=== PATIENT | male | born 1995 | race Caucasian/White ===

== ENCOUNTER → 2023-05-06 10:26 | Outpatient (CLI) | payer OTHER, SELFPAY ==
--- NOTE | 2023-05-06 | DI.MRI.S_ITS ---
PROCEDURE: MR KNEE LT WO CON INDICATIONS: Unspecified internal derangement of left knee TECHNIQUE: Noncontrast sagittal PD fast spin echo and T2 fast spin echo with fat saturation, sagittal 3-D FLASH with fat saturation; coronal T1 spin echo and PD fast spin echo with fat saturation, and axial PD fast spin echo with fat saturation through the knee. COMPARISON: [facility] [place], CR, XR KNEE 4+ VIEWS LEFT, 04/25/2023, 9:12. FINDINGS: Image quality: Excellent. Menisci: Mild T2 signal elevation at the posterior meniscal capsular junction of the posterior horn medial meniscus. The medial and lateral menisci demonstrate otherwise normal morphology and internal signal. The meniscal root ligaments appear intact. Cruciate ligaments: The anterior and posterior cruciate ligaments appear intact. Medial structures: The medial collateral ligament appears intact. Visualized portions of the pes anserinus tendons appear normal. No abnormal bursal fluid. Lateral structures: The lateral collateral ligament, long and short heads of the biceps femoris tendon appear intact. The popliteus tendon appears normal. Iliotibial band appears normal. Anterior structures: The quadriceps and patellar tendons appear intact. Lateral patellar subluxation is present. Shallow trochlear groove with lateral ventral trochlear prominence is present. No edema in the infrapatellar fat pad. Bones and cartilage: No bone marrow contusions or fractures. Moderate subchondral edema and microcyst formation within the medial patellar facet with moderate irregular overlying articular cartilage loss. Joint space: There is physiologic knee joint fluid. Within the posterior central aspect of the knee joint, there is a 4 mm low T2 intensity focus. No Cartagena's cyst. Normal appearing synovial plicae are incidentally noted. IMPRESSION: 1. Low-grade meniscal capsular junction injury involving the posterior horn medial meniscus. 2. Patellofemoral compartment osteoarthritis and articular cartilage loss associated with with findings which would be consistent with lateral patellofemoral friction syndrome in the appropriate clinical setting. 3. Small intra-articular loose body. Dictated by: Reid Norton M.D. on 05/07/2023 at 10:49 Approved by: Reid Norton M.D. on 05/07/2023 at 10:53
== END ==
PROVIDERS: Referring Provider Orthopaedic Surgery; Visit Provider Orthopaedic Surgery
DX: M23.322 Other meniscus derangements, posterior horn of medial meniscus, left knee (principal); M17.12 Unilateral primary osteoarthritis, left knee; M23.42 Loose body in knee, left knee; R60.0 Localized edema
CPT/HCPCS: 73721

== ENCOUNTER 2024-03-31 11:50 | Day surgery (SDC) | payer OTHER, SELFPAY ==
[2024-03-31] VITALS (14 sets, daily range): BP systolic 115–168; BP diastolic 71–111; PULSE 90–120; RESP 11–23; TEMP 36.2–36.5; O2SAT 92–100; BMI 33.1
[2024-03-31] MEDS: ACETAMINOPHEN 325 MG TABLET 975 MG PO (12:50)
[2024-03-31] MEDS: LACTATED RINGERS 1,000 ML 42 ML IV ×2 (12:51→15:58)
--- NOTE | 2024-03-31 13:12 | PM.PREOP ---
Pre-operative Note Interval Note History & Physical reviewed/Exam performed by Physician: Yes Changes to H&P: No
[2024-03-31] MEDS: CEFAZOLIN 2 GM/100 ML PREMIX 100 ML IV (13:59)
[2024-03-31] MEDS: BUPIVACAINE 0.5% W/ EPI (PF) 30 ML VIAL INJ (14:38)
[2024-03-31] MEDS: VANCOMYCIN 1,000 MG VIAL 1000 MG TOP (14:39)
--- NOTE | 2024-03-31 15:12 | PM.OP.1 ---
Operative Date/Time/Diagnoses Date of procedure: 03/31/24 Pre-op diagnosis: Suture abscess of medial left knee Post-op diagnosis: same Procedure & Clinicians Procedure: Incision and debridement of medial left knee Same procedure as scheduled: Yes Surgeon: Bhavik Nieves Click Yes if Unassisted: Yes Anesthesia Type: General and Local Operative Notes Estimated Blood Loss (mL): 50 Procedure in detail: This 28-year-old male patient had previously undergone arthroscopic management of his left knee by my partner who has since moved out of the area. He developed a suture abscess in his medial knee which was treated with antibiotics but has not resolved. He visited an emergency department in [place] earlier this month where the knee was aspirated and he was told that the cell count was approximately 900 however I was never able to obtain records from that emergency department visit. He had ongoing drainage from his wound site after I saw him and had him on Bactrim for antibiotics. His range of motion was full in the knee, indicating to me that this did not represent septic arthritis along with the finding of a low cell count from the knee aspiration in [place]. Given his ongoing drainage and failure to improve with oral antibiotics I recommended a returned to the operating room for a debridement. He understood the risks and benefits of the procedure and wished to move forward with it. I met him in the preoperative holding area the day of surgery and explained the risks and benefits of surgery in detail. All questions were answered. The operative site was marked. Informed consent was signed. He was wheeled back to the operating room and anesthesia was induced. He was prepped and draped in the usual sterile fashion. A time-out procedure was performed. A tourniquet was inflated I began by obtaining an aspirate of his knee joint. I used a spinal needle and introduced this on the lateral side of the knee through a suprapatellar portal. I did not obtain significant purulent fluid. I obtained approximately 4 mL of what appeared to be alma blood. I sent this for cell count and culture. I then placed a dressing over that site so as to not cross contaminate while working through the infected area. I planned out a incision which would allow me to excise the indurated and erythematous tissue immediately surrounding the abscess site as well as the area of drainage. This involved extending the incision both proximally and distally to minimize soft tissue tension during eventual closure. I ellipsed out the incision. I took 2 swabs for cultures from the abscess site. I sent some of the abscess site for culture as well. Opened up the subcutaneous tissue and a nonabsorbable stitch was found loose in the wound. I removed this. There was a graft attached to it which I believe to have been an old MPFL graft prior to his most recent surgery. It was very loose once that stitch had essentially fallen out of the wound. I therefore inspected the graft and found that extended both distally and proximally going into deeper tissues from the area where the wound had broken down more superficially. I detached it both proximally and distally and removed it as it was very loose and clearly not serving any function given that severe laxity in it at that point in time. I then probed the area where that graft extended proximally and found that it did not enter the proper knee joint. I could palpate the patella but there was synovial tissue between the patella and the portion of the wound which had been opened up. I debrided the area using a a rongeur, removing all nonviable appearing tissue. I removed subcutaneous tissue, allograft from prior surgery, and synovial tissue. I infiltrated that area with a dilute mixture of Betadine and peroxide and then copiously irrigated the entire wound with normal saline including placing the irrigation tubing up proximally into the area where the graft had previously extended. After irrigating with a total of 3 L of normal saline through the irrigation tubing I then placed vancomycin powder into the areas where the graft had extended proximally and then closed over the sites where the graft had previously extended into the deeper tissues proximally and distally with 0 PDS. I closed the subcutaneous tissue using 2-0 PDS after placing additional vancomycin into the deep tissues. I then closed the skin using a running nylon suture. Post-operative Plan for aftercare: 1. Patient will be admitted overnight. 2. I will plan to have him receive IV vancomycin overnight. 3. After discharge home I will have him on double-strength Bactrim. 4. I will have him back in clinic later this week so that we can review his cultures and ensure appropriate antibiotic coverage. 5. I will plan to discharge him home tomorrow. 6. Weightbearing as tolerated.
[2024-03-31] MEDS: OXYCODONE IR 5 MG TABLET PO ×2 (15:24→15:45)
[2024-03-31] MEDS: HYDROMORPHONE 1 MG INJ IV ×3 (15:24→15:43)
[2024-03-31] MEDS: hydrOXYzine 50 MG/ML INJ IM (15:27)
[2024-03-31] MEDS: ACETAMINOPHEN 325 MG TABLET 650 MG PO ×2 (17:00→22:35)
[2024-03-31] MEDS: LACTATED RINGERS 1,000 ML 100 ML IV ×2 (17:00→21:20)
[2024-03-31] MEDS: DOCUSATE 100 MG CAPSULE PO (21:17)
[2024-03-31] MEDS: ASPIRIN EC 81 MG TABLET PO (21:17)
[2024-03-31] MEDS: SENNOSIDES 8.6 MG TABLET 17.2 MG PO (21:17)
[2024-03-31] MEDS: IBUPROFEN 600 MG TABLET PO (21:17)
[2024-04-01 02:00] VITALS: BP 116/67; PULSE 93; RESP 12; TEMP 36.3; O2SAT 95
[2024-04-01] MEDS: VANCOMYCIN 1,500 MG/300 ML PIGGYBACK 200 MG IV (02:49)
[2024-04-01] MEDS: IBUPROFEN 600 MG TABLET PO ×2 (02:49→08:51)
[2024-04-01] MEDS: ACETAMINOPHEN 325 MG TABLET 650 MG PO (03:05)
[2024-04-01 05:03] LABS: Add Manual Diff / Slide Review NO; Basophils Absolute Auto 0 /uL (0-100); Basophils Percent Auto 0.3 % (0-2); Eosinophils Absolute Auto 0 /uL (0-450); Hematocrit 39.1 % (41-53); Hemoglobin 13.3 g/dL (13.5-17.5); Lymphocytes Absolute Auto 2000 /uL (1100-4500); Lymphocytes Percent Auto 19.3 % (25-40); Mean Corpuscular Hemoglobin 28.8 PG (26-34); Mean Corpuscular Volume 84.5 fL (80-100); Monocytes Absolute Auto 500 /uL (0-900); Monocytes Percent Auto 5.3 % (3-14); Neutrophils Absolute Auto 7700 /uL (1500-7000); Neutrophils Percent Auto 75.1 % (50-75); Platelet Count 248 X10^3/uL (150-400); Red Blood Cell Count 4.63 X10^6/uL (4.5-5.9); Red Cell Distribution Width 13.8 % (11.6-14.8); White Blood Cell Count 10.3 X10^3/uL (4.5-11.0)
[2024-04-01 05:23] LABS: Blood Urea Nitrogen 17 mg/dL (9-20); Carbon Dioxide 20 mmol/L (22-32); Chloride 106 mmol/L (98-107); Estimated Glomerular Filt Rate > 60 mL/min (>60); Glucose 117 mg/dL (70-100); HEMOLYSIS < 15 (0-50); Potassium 4.2 mmol/L (3.4-5.1); Sodium 136 mmol/L (137-145)
--- NOTE | 2024-04-01 07:57 | PM.DS.1 ---
History of Present Illness History of Present Illness Chief complaint: L I&D wound/extremity *OPB* Narrative: Jacquelyn is a pleasant 28-year-old male who is postop day #1 s/p suture abscess incision and debridement of the medial left knee by Dr. Nieves. This morning patient reports he is doing well, pain is improved from last night. He has been urinating well w/o issue. No new numbnes of the LLE. He reports he feels ready to discharge to home with his . He received IV vancomycin overnight. Denies fever, chills, chest pain, SOB, nausea, vomiting, sore throat, headache. Operative Date/Time/Diagnoses Date of procedure: 03/31/24 Pre-op diagnosis: Suture abscess of medial left knee Post-op diagnosis: same Procedure & Clinicians Procedure: Incision and debridement of medial left knee Same procedure as scheduled: Yes Surgeon: Bhavik Nieves Click Yes if Unassisted: Yes Anesthesia Type: General and Local Discharge Providers Provider Discharge Date: 04/01/24 Primary care physician: Avni SPANGLER Provider Consults: 03/31/24 06:51 Consult to Anesthesiology Routine Comment: Consulting Provider: Anesthesiologist Reason for consultation: Post operative pain managment 03/31/24 16:07 Consult to Discharge Planning Routine Comment: Consult to Physical Therapy Evaluate & Treat Comment: Physician Instructions: Evaluate and Treat Discharge provider: Kathrin Segovia PA-C Summary Hospital Course Discharge Diagnosis: Stable status post left medial knee incision and debridement of suture abscess Hospital Course: Uncomplicated hospital. Patient required overnight stay to receive IV antibiotics. Exam Vital Signs (past 8 hours): - 04/01/24 02:00 Temperature 97.3 F L Pulse Rate 93 H Respiratory Rate 12 Blood Pressure 116/67 Pulse Oximetry 95 Oxygen Flow Rate 0 Oxygen Delivery Method Room Air Oxygen Flow Rate 0 Narrative Exam Narrative: Patient lying comfortably in bed during our interview today. No acute distress. AOx3. Grossly normal alignment of the LLE. 5/5 strength with DF, PF, EHL bilaterally. Gross sensation intact throughout bilateral lower extremities. Calves soft and non-tender bilaterally. SCDs are on and functioning. Brisk capillary refill. Post-surgical dressing clean, dry and intact over the left knee without drainage. Objective Labs 04/01/24 04:31 04/01/24 04:31 Labs: Laboratory Results - last 24 hr 04/01/24 04:31 WBC 10.3 RBC 4.63 Hgb 13.3 L Hct 39.1 L MCV 84.5 MCH 28.8 MCHC 34.0 RDW 13.8 Plt Count 248 Neut % (Auto) 75.1 H Lymph % (Auto) 19.3 L [place] % (Auto) 5.3 Eos % (Auto) 0.0 L Baso % (Auto) 0.3 Neut # (Auto) 7700 H Lymph # (Auto) 2000 [place] # (Auto) 500 Eos # (Auto) 0 Baso # (Auto) 0 Sodium 136 L Potassium 4.2 Chloride 106 Carbon Dioxide 20 L BUN 17 Creatinine 1.06 Estimated GFR > 60 BUN/Creatinine Ratio 16.0 Glucose 117 H Calcium 9.0 PFSH Social History household members: spouse Smoking Status: Never smoker alcohol intake: current Discharge Assessment & Plan Assessment and Plan Assessment: Stable status post left medial knee incision and debridement of suture abscess Plan of Treatment: 1) Plan to discharge to home today with . 2) Continue multimodal pain management with ice to the knee for additional pain control. Pain medication sent to patient's duty pharmacy. 3) Patient will d/c to home w/ Bactrim DS BID. 4) WBAT. 5) Keep dressing intact, clean, dry until 2 week postop appointment. No soaking the incision site in pools or tubs. No topical ointments or creams to the incision site. 6) Follow up at [facility] orthopedics later this week w/ Dr. Nieves to review cultures and ensure appropriate antibiotic coverage. All patient's questions were answered, they demonstrates understanding and are in agreement with the plan. Call our office if any questions or concerns arise. Discharge Plan Discharge Plan Patient Disposition: Home Discharge orders & Medications Discharge Orders: Discharge (Order); Ordered 04/01/24 Ordered By: Kathrin Segovia Prescriptions: New acetaminophen 325 mg Tablet 650 mg PO Q6H Qty: 20 0RF docusate sodium 100 mg Capsule 100 mg PO BID Qty: 30 0RF ibuprofen 600 mg Tablet 600 mg PO Q6H Qty: 30 0RF sulfamethoxazole-trimethoprim [Bactrim DS] 800-160 mg tablet 1 tab PO BID Qty: 28 0RF hydrocodone-acetaminophen 5-325 mg tablet 1 tab PO Q6H PRN (Reason: pain) Qty: 30 0RF Continued sertraline 50 mg tablet 50 mg PO DAILY Follow up/Referrals: [facility] [Primary Care Provider] - Bhavik Nieves MD [Physician] - 04/16/24 8:20 am (appt:04/16 @ 8:[address] Nieves @ [facility] ) Diet/Activity/Treatments Diet: Diet as Tolerated Activity: Weightbearing as tolerated. Cold/Heat Therapy: Ice to the knee for additional pain control as needed Skin/Wound/Dressing Care Report to your healthcare provider any signs of infection, such as:: chills, fever, night sweats, unusual drainage and unusual redness Dressing: Leave dressing in place until follow up appt in office, if dressing becomes wet or saturated okay to remove and replace with clean dry gauze. Visit Report/Discharge Packet Instructions: DI for Prescription Opioid Use, DI for Incision and Drainage, [facility]: Wound Care Stand Alone Forms: Patient Portal/API Discharge Data Primary Care Provider: Avni Katz Attending Provider: Bhavik Nieves Quality VTE Deep Vein Thrombosis/Pulmonary Embolism Present on Admission: No
[2024-04-01] MEDS: polyethylene glycoL 3350 17 GM POWD.PACK PO (08:50)
[2024-04-01] MEDS: SERTRALINE 50 MG TABLET PO (08:51)
[2024-04-01] MEDS: ASPIRIN EC 81 MG TABLET PO (08:51)
[2024-04-01] MEDS: DOCUSATE 100 MG CAPSULE PO (08:51)
--- NOTE | 2024-04-01 09:25 | PT.IIE ---
Current Diagnoses Cutaneous abscess of left lower limb (03/31/24) Surgery Performed Operation Date: 03/31/24 13:45 Actual Procedures p Incision and debridement of infected wound in left knee(Left) - Bhavik Nieves MD Physical Therapy Inpatient Evaluation/Re-Eval M1 PT/OT-IP Prior Functional Status Start: 04/01/24 13:37 Freq: NEEDED Status: Active Protocol: Document 04/01/24 09:25 AB (Rec: 04/01/24 13:50 AB [id number]) Medical Review Prior Functional Status Medical History Reviewed Yes Communication able to make needs known Mobility and Gait pt stated that he was independent with all mobilities and ambulation withou tAD Social History Household Members spouse,children Living Arrangements House Number of Floors (Floors) Two Floors Number of Stairs To Enter/Railing? 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 PT-IP Current Condition Start: 04/01/24 13:37 Freq: NEEDED Status: Active Protocol: Document 04/01/24 09:25 AB (Rec: 04/01/24 13:50 AB [id number]) Physical Therapy Current Condition Current Condition Evaluation Date 04/01/24 Treatment Diagnosis s/p L knee I&D; difficulty in walking Onset Date 03/31/24 M3 PT-IP Subjective Start: 04/01/24 13:37 Freq: NEEDED Status: Active Protocol: Document 04/01/24 09:25 AB (Rec: 04/01/24 13:50 AB [id number]) Subjective Physical Therapy Visit Type Type Initial Evaluation Visit Start Time 09:25 Visit Stop Time 09:50 Number of SUPERSONIC ENGINEER Visits 0 Physical Therapy Visit Comments Patient Comments agreeable to do PT Therapy Pain Assessment Pain When Pain Assessed At Rest Pain Present Pain Present Pain Reported Location left knee Intensity 4 Scale Used Numeric (0 - 10) Pain Behaviors Wincing Pain Management Techniques Apply Cold,Distraction, Elevation,Modification of Treatment,Re-positioning, Timing of Activity with Medications M4 PT-IP Mobility and Gait Start: 04/01/24 13:37 Freq: NEEDED Status: Active Protocol: Document 04/01/24 09:25 AB (Rec: 04/01/24 13:50 AB [id number]) PT-Bed Mobility Assessment Rolling Level of Assist Independent Supine to Sit Supine to Sit Independent PT-Transfer Assessment Sit to and From Stand Sit to and from Stand Standby Assistance,Use of Upper Extremities Equipment Transfer Assistive Device None,Gait Belt Transfer Ability Level of Assist Standby Assistance,Contact Guard Assistance,1 Person Assistance,Use of Upper Extremities Comments Mobility Comments pt in bed and spouse in room with pt. obtained PLOF and home setup. pt completed bed mobility mod I. c/o increase L knee pain with movement. sit to stand from EOB SBA and ambulated in room without AD CGA. c/o increase L knee pain and presents with unsteady gait. pt tends to reach for talbe/wall for support. pt sat on chair. pt agreed to use crutches for mobility. completed sit to stand SBA and ambulated in room using bilateral crutches SBA. pt completed up/down step stool using foot rail and side of FWW as rails SBA ; completed up/down foot stood using 1 crutch and side of FWW as rail SBA. pt ambulated back to bed. sit to supine mod I. positioned pt in bed. ice pack provided. call light and table placed within reach. pt and spouse without further concerns. educated pt on safety and use of crutches for ambulation at this time. pt understood. Gait Assessment Gait Gait Assistance Required: Standby Assistance,Contact Guard Assist Distance (Feet) 30 Able to Maintain Weight Bearing Status Yes During Gait Assistive Devices Assistive Device None,Gait Belt,Axillary Crutches Orthotic/Prosthetic Devices or Brace: No Gait Deviations General Gait Pattern Antalgic,Decreased Stride Length,Decreased Feet Clearance Factors Limiting Gait Function Factors Limiting Gait Function Decreased Activity Tolerance, Decreased Strength,Limited Range of Motion,Pain,Poor Balance,Poor Safety Awareness PT-Balance Assessment Sitting Balance and Reactions Static Sitting Balance Ability Normal Dynamic Sitting Balance Ability Normal Standing Balance and Reactions Static Standing Balance Ability Good Dynamic Standing Balance Ability Fair Device Used without AD M5 PT-IP Objective Assessments Start: 04/01/24 13:37 Freq: NEEDED Status: Active Protocol: Document 04/01/24 09:25 AB (Rec: 04/01/24 13:50 AB [id number]) Orientation Orientation/Cognition Level of Alertness Alert Orientation Name,Age,Birthday,Month,Date, Year,Day of Week,Place, Situation Language Function Ability No Deficits Noted Safety Awareness Understands Safety Issues Memory Description No Deficits Noted Gross Range of Motion Lower Extremity ROM Assessment Left Impaired Strength Lower Extremity Strength Assessment Within Functional Limits Coordination Assessment Gross Coordination Gross Coordination WNL Muscle Tone Muscle Tone WNL Yes M6 PT-IP Treatment Start: 04/01/24 13:37 Freq: NEEDED Status: Active Protocol: Document 04/01/24 09:25 AB (Rec: 04/01/24 13:50 AB [id number]) Physical Therapy Treatment Education Education Provided Precautions,Weight Bearing Status,Safety M7 PT-IP Assessment and Plan Start: 04/01/24 13:37 Freq: NEEDED Status: Active Protocol: Document 04/01/24 09:25 AB (Rec: 04/01/24 13:50 AB [id number]) PT Summary Assessment and Plan Potential Rehabilitation Potential Fair Status of Condition at Evaluation Evolving Summary Impairments Pain,ROM,Strength,Balance, Coordination,Sensation,Tone, Cognition,Bed Mobility, Transfers,Gait,Activity Tolerance Assessment Summary pt is a 28 y/o M s/p I&D L knee POF 1. pt is modified independent with bed mobility, SBA for sit to stand and SBA to CGA for ambulation without AD and SBA for ambulation using crutches. recommending use of crutches at this time. pt lives with spouse and spouse will be able to assist when needed. pt may go home when medically stable. Goals Bed Mobility Goal Independent Transfer Goal Independent,Crutches Gait Goal Independent,Crutches Gait Distance 200 Other Goals up/down 3 steps B rail mod I up/down 20 stps L rail ascending + crutch mod I Days to Meet Goals 3 Frequency of Treatment Frequency Of Treatment Once a Day Treatment Plan Physical Therapy Treatment Plan Bed Mobility Training,Transfer Training,Gait Training, Therapeutic Exercise,Balance Retraining,Post Op Education, Discharge Planning,Hot or Cold Pack,Neuromuscular Re-ed, Coordination Retraining,Manual Therapy Weight Bearing Status Weight Bearing Status Weight Bear as Tolerated Allowed Weight Bearing Amount (enter % LLE WBAT or #) (%) Recommendations To Nursing Amount of Assist Needed Standby Assistance Discharge Recommendations PT Discharge Recommendations Home with Assistance, Outpatient PT Transportation Needs at Discharge Private Vehicle
--- NOTE | 2024-04-01 10:08 | PC.NURSE ---
Pt is dressed and ready to be discharged home with Spouse. IV has been removed. Went over d/c instructions with Pt and Spouse-discussed d/c meds, time of last dose, reviewed stroke education, signs and symptoms of infection, showering, keeping dressing intact unless saturated and then how to change dsg, no driving while on narcotics, drink plenty of fluids to prevent constipation or dehydration and follow up appointment. Pt denied further questions and was taken out via w/c by GRIDCAP MACHINE OPERATOR to POV with Spouse and all belongings.
--- NOTE | 2024-04-01 10:36 | CM.DANOTE ---
B DCP Assessment Note pt is a 28yo M here following L knee I&D with Dr. Nieves, POD1 PCP [facility] Provider Payer Fina Ballesteros and self pay IT COMMUNICATIONS MANAGER reviewed EMR. Pt lives with spouse in [place]. 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 Per provider note, pt to f/u with OP setting for f/u abx instructions. indep at baseline. Per chart, pt cleared to dc today. Pt left with spouse prior to meeting with this IT COMMUNICATIONS MANAGER. P: no CM needs identified at this time per chart review, f/u in OP setting. DESIRE Yarbrough Discharge Planning/Care Management CM Discharge Assessment Start: 04/01/24 10:35 Freq: Status: Active Protocol: Document 04/01/24 10:35 SL (Rec: 04/01/24 10:36 SL [id number]) Discharge Planning Assessment Assigned Metal Washing Machine Operator DESIRE Little DPOA/Assigned Designee Name Leonel, spouse Contact Information [phone] Advance Directives? No History Provided By Patient Prior Living Arrangements House Household Members spouse Type of transporation used prior to Drives own vehicle admit Independent with ADL's Yes Is patient alert and oriented? Yes Barriers to Discharge No Discharge Plan Home Referrals Initiated None needed Review Status In Process Please Provide Date Initial DC 04/01/24 Assessment Was Performed Next Review Type Continued Stay Review
== END 2024-04-01 10:21 | disposition home or self-care (01) ==
LOC: OR 11:52 → AC 11:52
PROVIDERS: Referring Provider Orthopaedic Surgery Adult Reconstructive Orthopaedic Surgery; Visit Provider Orthopaedic Surgery Adult Reconstructive Orthopaedic Surgery
PROC: (CPT 27310; principal; 2024-03-31 13:45)
DX: T81.41XA Infection following a procedure, superficial incisional surgical site, initial encounter (principal); Z18.89 Other specified retained foreign body fragments; A49.01 Methicillin susceptible Staphylococcus aureus infection, unspecified site
CPT/HCPCS: 27310; 36415; 80048; 85025; 87070; 87075; 87077; 87147; 87176; 87186; 87205; 97161; 97530; J0690; J1100; J1171; J1885; J2250; J2405; J2704; J3010; J3410

== ENCOUNTER 2024-06-12 12:23 | Emergency (ER) | payer OTHER, SELFPAY ==
[2024-03-31 12:02] VITALS: BMI 33.1
[2024-06-12 12:41] VITALS: BP 142/87; PULSE 94; RESP 18; TEMP 37; O2SAT 96; BMI 33.1
--- NOTE | 2024-06-12 13:03 | DI.RAD.S_ITS ---
PROCEDURE: XR KNEE LT 3V INDICATIONS: skin infx, prior MPFL surgery TECHNIQUE: 3 views of the knee were acquired. COMPARISON: None. FINDINGS: Bones: No acute fractures or dislocations. No suspicious bony lesions. Postsurgical changes noted at the medial femoral epicondyle and presumably at the medial patella. Soft tissues: No joint effusion. No suspicious soft tissue calcifications. Mild subcutaneous edema in the prepatellar soft tissues. IMPRESSION: Mild prepatellar subcutaneous edema. No soft tissue gas. No significant joint effusion. No acute osseous abnormality. MRI could be performed for further evaluation of intra-articular structures if indicated clinically. Approved by: Shashank Romeo M.D. on 06/12/2024 at 14:10
--- NOTE | 2024-06-12 13:18 | ED_ITS ---
<Statement entered by Armani Mendez DO - 06/12/24 20:47> Dr. Mendez: I was immediately available in the department for consultation. I did not actually see the patient. HPI - Wound/Laceration General Chief Complaint: Wound/Laceration Stated Complaint: sent by PCP for knee infection Time Seen by Provider: 06/12/24 13:00 Source: patient Mode of arrival: Ambulatory History of Present Illness HPI narrative: Mr. Bhagat is a very pleasant 28-year-old male with a past medical history of the left medial patellofemoral ligament reconstruction in January 2024 complicated by skin infection in February with wound washout by Dr. Nieves 03/31/24 who presents to the emergency department for left knee skin infection x2 weeks. Patient reports he was healing well however about 2 weeks ago he noticed that his medial left knee skin incision started to crust and drain, become red and swollen. He saw his surgeon 1 week ago who started him on doxycycline. Patient reports wound has got potentially slightly better but continues to be open and draining. Saw his primary care doctor on the [employer] base who sent him to the emergency department. At this time patient reports pain and swelling of the left knee, primarily between the patella and the medial wound. He denies fevers, chills, chest pain, shortness of breath, numbness tingling or weakness. Reports that he does have some bright red blood in his stool for the last few days which she attributes to possible NSAID use. Patient states he had a colonoscopy a few months ago for right red blood in his stool which was normal at this time, states that he believes he suffers from hemorrhoids. He denies abdominal pain nausea vomiting diarrhea or constipation. Related Data Home Medications Medication Instructions Recorded Confirmed sertraline 50 mg tablet 50 mg PO DAILY 03/31/24 03/31/24 Previous Rx's Medication Instructions Recorded acetaminophen 325 mg tablet 650 mg (2 x 325 mg) PO Q6H #20 tabs 04/01/24 docusate sodium 100 mg capsule 100 mg PO BID #30 caps 04/01/24 hydrocodone 5 mg-acetaminophen 325 1 tab PO Q6H PRN pain #30 tabs 04/01/24 mg tablet ibuprofen 600 mg tablet 600 mg PO Q6H #30 tabs 04/01/24 sulfamethoxazole 800 1 tab PO BID #28 tabs 01/28/25 mg-trimethoprim 160 mg tablet (Bactrim DS) sulfamethoxazole 800 1 tab PO BID 7 days #14 tabs 06/12/24 mg-trimethoprim 160 mg tablet (Bactrim DS) Allergies Allergy/AdvReac Type Severity Reaction Status Date / Time No Known Drug Allergies Allergy Verified 03/31/24 12:19 Review of Systems Review of Systems ROS Unobtainable: All systems reviewed & are unremarkable except as noted in HPI and below Patient History Social History household members: spouse Smoking Status: Unknown if ever smoked alcohol intake: current Smoking Status: Unknown if ever smoked Exam Narrative Exam Narrative: GENERAL: 28 year old patient appears stated age. Well-developed patient, in no acute distress. HEAD: Atraumatic. Normocephalic. EYES: No scleral icterus. No injection or drainage. NECK: Trachea midline. Cervical ROM intact. CARDIOVASCULAR: Regular rate and rhythm. RESPIRATORY: ?Nonlabored respirations. ?Speaking in clear, full sentences. ?Clear to auscultation. Breath sounds equal bilaterally. No wheezes, rales, or rhonchi. ? GASTROINTESTINAL: Abdomen soft, non-tender, nondistended. No rebound or guarding. EXTREMITIES: On the left knee, there is a linear midline surgical scar and a medial linear surgical scar. The medial surgical scar has an overlying of erythema that is 4 cm by 2.5 cm and an open wound that is 2 cm x 1 cm that is draining a yellow tinged clear fluid. He has tenderness to palpation of the area between this medial incision and his patella. There is no surrounding streaking erythema. There is generalized swelling of the left knee. BACK: Nontender without deformity or crepitance. No flank tenderness. NEURO: AOx3. ?Clear speech. ?Moves all 4 extremities appropriately. SKIN: No rash or erythema of visible areas Initial Vital Signs Initial Vital Signs: Vital Signs Temperature 98.6 F 06/12/24 12:41 Pulse Rate 94 H 06/12/24 12:41 Respiratory Rate 18 06/12/24 12:41 Blood Pressure 142/87 H 06/12/24 12:41 Pulse Oximetry 96 06/12/24 12:41 Oxygen Delivery Method Room Air 06/12/24 12:41 Course Orders Ordered: ED Orders 06/12/24 12:45 Wound Culture and Gram Stain Stat 04/10/25 13:03 XR knee LT 3V Stat 06/12/24 13:10 CRP [C-Reactive Protein Quant] Stat Complete Blood Count AUTO DIFF Stat Comprehensive Metabolic Panel Stat ESR [Erythrocyte Sedimentation Rate] Stat Lactate (Lactic Acid) Stat 06/12/24 13:36 Blood Culture Stat Discontinued Medications Acetaminophen (Acetaminophen 325 Mg Tablet) 975 mg PO NOW ONE Stop: 06/12/24 13:19 Last Admin: 06/12/24 13:30 Dose: 975 mg Documented By: CHRISTEL Bacitracin (Bacitracin Oint 0.9 Gm Pckt) 1 applic TOP NOW ONE Stop: 06/12/24 16:40 Last Admin: 06/12/24 16:46 Dose: 1 applic Documented By: FERNANDO Diphenhydramine HCl (Diphenhydramine 50 Mg/Ml Vial) 25 mg IV NOW ONE Stop: 06/12/24 17:42 Last Admin: 06/12/24 17:47 Dose: 25 mg Documented By: FERNANDO Sodium Chloride (Normal Saline 0.9%) 1,000 mls @ 1,000 mls/hr IV BOLUS ONE Stop: 06/12/24 14:02 Last Infusion: 06/12/24 14:34 Dose: Infused Documented By: Admin: 06/12/24 13:30 Dose: 1,000 mls/hr Documented By: CHRISTEL Vancomycin HCl/Dextrose (Vancomycin) 2,000 mg in 400 mls @ 200 mls/hr IV NOW ONE Stop: 06/12/24 18:14 Last Infusion: 06/12/24 17:37 Dose: 100 mls/hr Documented By: Admin: 06/12/24 16:46 Dose: 200 mls/hr Documented By: FERNANDO Pantoprazole Sodium (Pantoprazole 40 Mg Vial) 40 mg IV NOW ONE Stop: 06/12/24 13:19 Last Admin: 06/12/24 13:30 Dose: 40 mg Documented By: CHRISTEL Consultations Consultation #1: Discussed case with the on-call orthopedic surgeon Dr. Browning. At this time she recommends 1 dose of IV vancomycin, switch antibiotic to Bactrim, she will see the patient in clinic tomorrow. Because he is not septic, no fever, no elevated white blood cell count, no elevated inflammatory markers, she does not recommend admission at this time. I will send her pictures of the wound today. Time: 16:12 Vital Signs Vital signs: Vital Signs - 8 hr 06/12/24 12:41 06/12/24 16:54 Temperature 98.6 F Pulse Rate 94 H 76 Respiratory Rate 18 16 Blood Pressure 142/87 H 132/82 Pulse Oximetry 96 96 Oxygen Delivery Method Room Air Room Air MDM - Wound/Laceration Medical Records Attestation: I reviewed the patient's medical records. Medical records narrative: Surgery 03/31/2024 for cutaneous abscess of left lower limb Lab Data 06/12/24 13:10 06/12/24 13:10 Labs: Lab Results 06/12/24 Range/Units 13:10 WBC 6.3 (4.5-11.0) X10^3/uL RBC 5.29 (4.5-5.9) X10^6/uL Hgb 15.2 (13.5-17.5) g/dL Hct 44.4 (41-53) % MCV 84.0 (80-100) fL MCH 28.7 (26-34) PG MCHC 34.2 (30-36) % RDW 14.6 (11.6-14.8) % Plt Count 207 (150-400) X10^3/uL Neut % (Auto) 46.2 L (50-75) % Lymph % (Auto) 43.2 H (25-40) % [place] % (Auto) 6.5 (3-14) % Eos % (Auto) 3.1 (2-4) % Baso % (Auto) 1.0 (0-2) % Neut # (Auto) 2900 (0164-2805) /uL Lymph # (Auto) 2700 (1526-4944) /uL [place] # (Auto) 400 (0-900) /uL Eos # (Auto) 200 (0-450) /uL Baso # (Auto) 100 (0-100) /uL ESR 5 (0-15) MM/HR Sodium 139 (137-145) mmol/L Potassium 4.2 (3.4-5.1) mmol/L Chloride 104 (98-107) mmol/L Carbon Dioxide 24 (22-32) mmol/L BUN 18 (9-20) mg/dL Creatinine 1.18 (0.66-1.25) mg/dL Estimated GFR > 60 (>60) mL/min BUN/Creatinine Ratio 15.3 (6-22) Glucose 124 H (70-100) mg/dL Lactate 1.3 (0.7-2.1) mmol/L Calcium 9.8 (8.4-10.2) mg/dL Total Bilirubin 0.8 (0.2-1.3) mg/dL AST 40 (17-59) IU/L ALT 67 H (<50) IU/L Alkaline Phosphatase 83 (38-126) U/L C-Reactive Protein < 0.5 (<1.0) mg/dL Total Protein 8.2 (6.3-8.2) g/dL Albumin 4.7 (3.5-5.0) g/dL Globulin 3.5 (1.7-4.1) g/dL Albumin/Globulin Ratio 1.3 (1.0-2.8) Imaging Data Left Knee X-Ray: Radiologist's Impression: PROCEDURE: XR KNEE LT 3V INDICATIONS: skin infx, prior MPFL surgery TECHNIQUE: 3 views of the knee were acquired. COMPARISON: None. FINDINGS: Bones: No acute fractures or dislocations. No suspicious bony lesions. Postsurgical changes noted at the medial femoral epicondyle and presumably at the medial patella. Soft tissues: No joint effusion. No suspicious soft tissue calcifications. Mild subcutaneous edema in the prepatellar soft tissues. IMPRESSION: Mild prepatellar subcutaneous edema. No soft tissue gas. No significant joint effusion. No acute osseous abnormality. MRI could be performed for further evaluation of intra-articular structures if indicated clinically. [facility] Narrative Medical decision making narrative: 28-year-old male with a past medical history of the left medial patellofemoral ligament reconstruction in January 2024 complicated by skin infection in February with wound washout by Dr. Nieves 03/31/24 who presents to the emergency department for left knee skin infection x2 weeks. Differential diagnosis includes but is not limited to cutaneous skin infection, abscess, cellulitis, septic arthritis, rejection of internal sutures, etc. On exam patient is in no acute distress, nontoxic appearing, vital signs appropriate except for mildly elevated blood pressure and heart rate, he is afebrile. On his medial left knee overlying a prior surgical scar there is an open wound that is actively draining. He has been on doxycycline for 1 week without resolution of the wound. Patient also reports minimal bright red blood in his stool for the last few days, he has had this in the past and previous had a colonoscopy, he is not having any abdominal pain but is having slight rectal pain with bowel movements and malaise he has hemorrhoids. At this time no indication for emergent CT of the abdomen and pelvis. We will obtain labs, x- ray knee, inflammatory markers, lactate, treat with fluids and Tylenol at this time and then consult with ortho. Labs overall reassuring with a normal WBC count of 6.3, normal lactate 1.3, negative CRP, ESR of 5. X-ray reveals mild prepatellar subcutaneous edema. No soft tissue gas. No significant joint effusion. No acute osseous abnormality. Patient has good range of motion of the left knee, reassuring labs, at this time I believe his wound is more related to a superficial cutaneous surgical incision abscess and not septic arthritis. I consulted the orthopedic surgeon on-call who recommends a dose of IV vancomycin, and she will see the patient in clinic tomorrow. We will change oral antibiotics from doxycycline to Bactrim. With the patient's consent, I sent her a picture of his wound and she sent me a picture of his wound from a few days ago and it is very apparent that the wound is actually getting much better. Will treat with one time dose of vancomycin, 15-20 mg/kg, will use 2,000mg dose. Both blood and wound cultures are pending. Discussed proper wound care with the patient. Strict ED return precautions discussed and verbalized the importance of follow up with orthopedic surgeon in clinic tomorrow. 5:40pm I was informed the patient was developing some itchy sensation on the back of his scalp and neck. Physical exam does reveal mild erythema in the back of his head and neck. No wheezing, no oropharyngeal swelling. Suspect mild development of red man syndrome. Infusion was slowed to 100 mL an hour, we will treat with IV Benadryl as well. Symptoms immediately resolved after this intervention. Discussed proper wound care with the patient, strict ED return precautions discussed, follow up tomorrow with Orthopedics. He verbalized understanding of all information is agreeable with the plan. He is stable for discharge home. Discharge Plan Departure Patient Disposition: Home Clinical Impression: Cutaneous abscess of left lower limb Instructions: DI for Wound Infection Activity Restrictions/Additional Instructions: Dear [place], Thank you for coming to the emergency department. Today you were evaluated for left knee infection. Both blood and wound cultures were obtained. You were treated with a dose of IV antibiotics, and you need to follow up with our orthopedic surgeon Dr. Browning tomorrow at her [facility] location. Please call the office in the morning however they are also aware of you in she would beginning you scheduled. Please rest, hydrate, use Tylenol for pain, and wash the wound 1-2 times daily and keep it clean, dry, covered with a dressing at all times. Please complete the full course of the newly prescribed antibiotics. Please return to the emergency department immediately if you develop any fevers, shaking chills, spreading redness or other concerns. For the blood in your stool - please use MiraLax to prevent constipation/straining and follow up with your primary care doctor. Please return to the emergency department if you develop large amounts of blood in the stool, black or tarry stools, or any other concerns. Please follow up with your primary care doctor within the next 2-3 days for ER follow-up. (If you do not have a PCP you can call [phone]. ?to schedule an appointment with an [facility] Primary Care Provider) IF YOU DEVELOP ANY NEW OR WORSENING SYMPTOMS, RETURN TO THE ER! Please read the attached instructions, they highlight more specific treatments and interventions for you at home. Thank you for letting me participate in your care, Hilary Powers PA-C Prescriptions: New sulfamethoxazole-trimethoprim [Bactrim DS] 800-160 mg tablet 1 tab PO BID 7 Days Qty: 14 0RF No Action sertraline 50 mg tablet 50 mg PO DAILY acetaminophen 325 mg Tablet 650 mg PO Q6H Qty: 20 0RF docusate sodium 100 mg Capsule 100 mg PO BID Qty: 30 0RF ibuprofen 600 mg Tablet 600 mg PO Q6H Qty: 30 0RF sulfamethoxazole-trimethoprim [Bactrim DS] 800-160 mg tablet 1 tab PO BID Qty: 28 0RF hydrocodone-acetaminophen 5-325 mg tablet 1 tab PO Q6H PRN (Reason: pain) Qty: 30 0RF Referrals: Provider,Avni SPANGLER [Primary Care Provider] - Krystal Browning MD [Physician] - (28 yo M with Left knee infection, had I&D with Dr. Nieves 03/31/24) Stand Alone Forms: Patient Portal/API/Survey, Work Release Note
[2024-06-12 13:21] LABS: Add Manual Diff / Slide Review NO; Basophils Absolute Auto 100 /uL (0-100); Eosinophils Absolute Auto 200 /uL (0-450); Eosinophils Percent Auto 3.1 % (2-4); Hematocrit 44.4 % (41-53); Hemoglobin 15.2 g/dL (13.5-17.5); Lymphocytes Absolute Auto 2700 /uL (1100-4500); Lymphocytes Percent Auto 43.2 % (25-40); Mean Corpuscular HGB Conc 34.2 % (30-36); Mean Corpuscular Hemoglobin 28.7 PG (26-34); Monocytes Absolute Auto 400 /uL (0-900); Monocytes Percent Auto 6.5 % (3-14); Neutrophils Absolute Auto 2900 /uL (1500-7000); Neutrophils Percent Auto 46.2 % (50-75); Platelet Count 207 X10^3/uL (150-400); Red Blood Cell Count 5.29 X10^6/uL (4.5-5.9); Red Cell Distribution Width 14.6 % (11.6-14.8); White Blood Cell Count 6.3 X10^3/uL (4.5-11.0)
[2024-06-12] MEDS: PANTOPRAZOLE 40 MG VIAL IV (13:30)
[2024-06-12] MEDS: ACETAMINOPHEN 325 MG TABLET 975 MG PO (13:30)
[2024-06-12] MEDS: SODIUM CHLORIDE 0.9% 1,000 ML 1000 ML IV (13:30)
[2024-06-12 13:38] LABS: Alanine Aminotransferase 67 IU/L (<50); Albumin 4.7 g/dL (3.5-5.0); Albumin Globulin Ratio 1.3 (1.0-2.8); Alkaline Phosphatase 83 U/L (38-126); Aspartate Aminotransferase 40 IU/L (17-59); BUN Creatinine Ratio 15.3 (6-22); Bilirubin Total 0.8 mg/dL (0.2-1.3); Blood Urea Nitrogen 18 mg/dL (9-20); Calcium 9.8 mg/dL (8.4-10.2); Carbon Dioxide 24 mmol/L (22-32); Chloride 104 mmol/L (98-107); Estimated Glomerular Filt Rate > 60 mL/min (>60); Globulin 3.5 g/dL (1.7-4.1); Glucose 124 mg/dL (70-100); HEMOLYSIS < 15 (0-50); Potassium 4.2 mmol/L (3.4-5.1); Sodium 139 mmol/L (137-145); Total Protein 8.2 g/dL (6.3-8.2)
[2024-06-12 13:39] LABS: Erythrocyte Sedimentation Rate 5 MM/HR (0-15); Lactate (Lactic Acid) 1.3 mmol/L (0.7-2.1)
[2024-06-12 13:41] LABS: C-Reactive Protein Quant < 0.5 mg/dL (<1.0)
[2024-06-12] MEDS: BACITRACIN OINT 0.9 GM PCKT 1 APPLIC TOP (16:46)
[2024-06-12] MEDS: VANCOMYCIN 2,000 MG/400 ML PIGGYBACK 200 MG IV (16:46)
[2024-06-12 16:54] VITALS: BP 132/82; PULSE 76; RESP 16; O2SAT 96
--- NOTE | 2024-06-12 16:55 | PC.NURSE ---
Pt reports left knee surgery back in January. States he had a washout of his knee from infection. Pt noted since late May early June his knee started to swell again and become irritated. Drainage noted at knee sight. Denies any fevers in the last 72 hours
--- NOTE | 2024-06-12 17:37 | PC.NURSE ---
Pt reports feeling itchy in the back of head for the past 15 min. Vancomycin slowed down to 100ml/hr. Pt appears to be mildly red in face. PA made aware.
[2024-06-12] MEDS: diphenhydrAMINE 50 MG/ML VIAL 25 MG IV (17:47)
[2024-06-12 19:57] VITALS: BP 119/75; PULSE 81; RESP 16; O2SAT 97
== END 2024-06-12 20:31 | disposition home or self-care (01) ==
PROVIDERS: Emergency Provider Physician Assistant
DX: T81.41XA Infection following a procedure, superficial incisional surgical site, initial encounter (principal); L02.416 Cutaneous abscess of left lower limb; K62.5 Hemorrhage of anus and rectum; L53.9 Erythematous condition, unspecified
CPT/HCPCS: 36415; 73562; 80053; 83605; 85025; 85651; 86140; 87040; 87070; 87075; 87077; 87147; 87186; 87205; 96361; 96365; 96366; 96375; 99284; J1200; J2470

== ENCOUNTER → 2024-06-20 19:45 | Outpatient (CLI) | payer OTHER, SELFPAY ==
[2024-03-31 12:02] VITALS: BMI 33.1
--- NOTE | 2024-06-20 19:47 | DI.MRI.S_ITS ---
PROCEDURE: MR KNEE LT WO CON INDICATIONS: ABSCESS OF LEFT KNEE TECHNIQUE: Noncontrast sagittal PD fast spin echo and T2 fast spin echo with fat saturation, sagittal 3-D FLASH with fat saturation; coronal T1 spin echo and PD fast spin echo with fat saturation, and axial PD fast spin echo with fat saturation through the knee. COMPARISON: [facility], CR, XR KNEE LT 3V, 06/12/2024, 13:12. [facility], RG, KNEE 3VW (LT), 03/06/2024, 20:13. [facility], CR, XR KNEE 3 VIEWS LEFT, 03/03/2024, 9:01. [facility], CR, XR KNEE 4+ VIEWS LEFT, 04/25/2023, 9:12. [facility], MR, MR KNEE LT WO CON, 05/06/2023, 10:39. FINDINGS: Image quality: Excellent. Susceptibility artifact from the prior medial patellofemoral reconstruction hardware limits evaluation. Bones: Presumably, there has been prior medial patellofemoral ligament reconstruction using a quadriceps tendon autograft. Within the confines of susceptibility artifact, the bone marrow signal at the medial femoral condyle is within normal limits. There may be a developing 0.5 cm medial patellar facet osteochondral defect (10/12) with a small amount of fluid signal between the patellar body and osteochondral fragment. Joints: There is no significant knee joint effusion or intra-articular body. There is no significant knee osteoarthritis. Cartagena's cyst: None. Menisci: The medial meniscus is normal. The lateral meniscus is normal. The posterior root attachments are normal. Cruciate ligaments: The anterior cruciate ligament is normal. The posterior cruciate ligament is normal. Collateral ligaments: There is low signal thickening of the tibial collateral ligament. There is indistinctness of the previously repaired medial patellofemoral ligament graft, with dislodgement of two graft anchors from their expected position at the medial femoral condyle. The anchors now lie in an intramuscular location within the distal slip of the vastus medialis (-; 10/08-). The most posterior graft anchor remains in place at the medial femoral condyle, but without an attached medial patellofemoral ligament fragment (10/15). The femoral condylar portions of the medial patellofemoral ligament are retracted toward the patellar segment (8/6; 13/11-14). The lateral collateral ligament complex is normal. Popliteus Muscle/Tendon: The popliteus muscle and tendon are normal. Extensor mechanism: Susceptibility artifact obscures the quadriceps tendon. The patellar tendon is thickened with low signal. The lateral patellar attachment is normal Articular cartilage: There is near full-thickness chondral loss and near full-thickness chondral fissuring at the medial patellar facet (3/13). 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 IMPRESSION: 1. Status post presumed medial patellofemoral ligament reconstruction with subsequent failure of the graft anchors at the medial femoral condyle, and displacement into the subcutaneous/intramuscular adjacent soft tissues. 2. No MR evidence of a drainable abscess or fluid collection. 3. Possible developing 0.5 cm medial patellar facet osteochondral defect without MR evidence suggestive of instability, and associated articular cartilage defects. Dictated by: Yusuf Chacon M.D. on 06/23/2024 at 12:42 Approved by: Yusuf Chacon M.D. on 06/23/2024 at 13:11
== END ==
LOC: MRI 19:46
PROVIDERS: Referring Provider Orthopaedic Surgery Adult Reconstructive Orthopaedic Surgery; Visit Provider Orthopaedic Surgery Adult Reconstructive Orthopaedic Surgery
DX: L02.416 Cutaneous abscess of left lower limb (principal); Z98.890 Other specified postprocedural states; M96.89 Other intraoperative and postprocedural complications and disorders of the musculoskeletal system
CPT/HCPCS: 73721

== ENCOUNTER 2024-06-20 20:49 | Emergency (ER) | payer OTHER, SELFPAY ==
[2024-03-31 12:02] VITALS: BMI 33.1
[2024-06-20 21:10] VITALS: BP 127/83; PULSE 75; RESP 14; TEMP 36.5; O2SAT 98; BMI 33.1
--- NOTE | 2024-06-20 21:53 | PC.WOUNDPHOT ---
PHOTOS TAKEN 06/12 BY WHIT ROGERS
[2024-06-21 01:51] VITALS: BP 125/83; PULSE 70; RESP 15; TEMP 36.6; O2SAT 98
--- NOTE | 2024-06-21 01:59 | ED_ITS ---
HPI - Skin/Abscess/Foreign Bdy General Chief complaint: Skin/Abscess/Foreign Body Stated complaint: cellulitis getting worse was here a few days ago Time Seen by Provider: 06/21/24 01:29 Source: patient Mode of arrival: Ambulatory Limitations: no limitations History of Present Illness HPI narrative: 28-year-old gentleman with a history of left medial patellofemoral ligament reconstruction January of 2024 complicated by skin infection in February washout by Dr. Young 03/31/2024. Was seen in the emergency department on June 12 with concerns for developing knee infection. Is on the medial aspect of his left knee with a small amount of drainage. Cultures were obtained, he was started on doxycycline. Workup at the time did not suggest underlying hardware or joint infection. He was given a single dose of vancomycin and treated with Bactrim. Cultures grew out methicillin sensitive staph, pansensitive. Was seen by Dr. Chris estrada with an MRI of the knee ordered, this is completed on the . Increasing drainage from the knee and increasing pain superficially was noted so he comes to the ER for additional evaluation. The wound looks like it has a deeper portion with some purulence that is sent for culture. There was a more superficial component that looks more like a bulla with a small amount of blood collected. This too was drained. No fevers or chills, he is able to walk on the knee without significant pain Related Data Home Medications Medication Instructions Recorded Confirmed sertraline 50 mg tablet 50 mg PO DAILY 03/31/24 03/31/24 Previous Rx's Medication Instructions Recorded acetaminophen 325 mg tablet 650 mg (2 x 325 mg) PO Q6H #20 tabs 04/01/24 docusate sodium 100 mg capsule 100 mg PO BID #30 caps 04/01/24 hydrocodone 5 mg-acetaminophen 325 1 tab PO Q6H PRN pain #30 tabs 04/01/24 mg tablet ibuprofen 600 mg tablet 600 mg PO Q6H #30 tabs 04/01/24 sulfamethoxazole 800 1 tab PO BID #28 tabs 04/01/24 mg-trimethoprim 160 mg tablet (Bactrim DS) clindamycin HCl 300 mg capsule 300 mg PO BID 7 days #14 caps 06/21/24 Allergies Allergy/AdvReac Type Severity Reaction Status Date / Time No Known Drug Allergies Allergy Verified 03/31/24 12:19 Review of Systems Review of Systems Narrative: Pertinent positive and negative findings as per HPI Patient History Surgical History (Updated 06/21/24 @ 03:42 by Anastacia Best MD) S/P medial patellofemoral ligament reconstruction Social History household members: spouse Smoking Status: Never smoker alcohol intake: current Smoking Status: Never smoker Exam Initial Vital Signs Initial Vital Signs: Vital Signs Temperature 97.7 F 06/20/24 21:10 Pulse Rate 75 06/20/24 21:10 Respiratory Rate 14 06/20/24 21:10 Blood Pressure 127/83 06/20/24 21:10 Pulse Oximetry 98 06/20/24 21:10 Oxygen Delivery Method Room Air 06/20/24 21:10 General: Alert appropriate in no acute distress Respiratory: Able to speak in full sentences, no obvious respiratory distress Skin: No obvious rashes, warm and dry Neurologic: Grossly intact no obvious asymmetries or abnormalities Psych: appropriate insight and affect, cooperative Extremity: Has a area of skin breakdown with superficial bulla and a deeper track with purulent discharge. Range of motion of the knee is not changed nor is it painful. There was some minor erythema around the wound that is draining. Course Orders Ordered: ED Orders 06/21/24 02:10 Wound Culture and Gram Stain Stat 06/21/24 02:20 CBC Auto Diff [Complete Blood Count AUTO DIFF] Stat CMP [Comprehensive Metabolic Panel] Stat Procalcitonin Stat Discontinued Medications Acetaminophen (Acetaminophen 325 Mg Tablet) 325 mg PO NOW ONE Stop: 06/21/24 02:34 Last Admin: 06/21/24 02:47 Dose: 325 mg Documented By: FERNANDO Ceftriaxone Sodium 2,000 mg/ (Sodium Chloride) 100 mls @ 200 mls/hr IV NOW ONE Stop: 06/21/24 02:19 Last Infusion: 06/21/24 03:22 Dose: Infused Documented By: Admin: 06/21/24 02:46 Dose: 200 mls/hr Documented By: FERNANDO Ibuprofen (Ibuprofen 400 Mg Tablet) 400 mg PO NOW ONE Stop: 06/21/24 02:34 Last Admin: 06/21/24 02:46 Dose: 400 mg Documented By: FERNANDO Vital Signs Vital signs: Vital Signs - 8 hr 06/21/24 01:51 06/21/24 04:43 Temperature 97.8 F 97.4 F L Pulse Rate 70 83 Respiratory Rate 15 15 Blood Pressure 125/83 124/85 Pulse Oximetry 98 95 Oxygen Delivery Method Room Air Room Air MDM - Skin/Abscess/Foreign Bdy Lab Data 06/21/24 02:20 06/21/24 02:20 Labs: Lab Results 06/21/24 Range/Units 02:20 WBC 7.4 (4.5-11.0) X10^3/uL RBC 5.27 (4.5-5.9) X10^6/uL Hgb 15.4 (13.5-17.5) g/dL Hct 43.9 (41-53) % MCV 83.3 (80-100) fL MCH 29.2 (26-34) PG MCHC 35.0 (30-36) % RDW 14.7 (11.6-14.8) % Plt Count 207 (150-400) X10^3/uL Neut % (Auto) 38.7 L (50-75) % Lymph % (Auto) 47.8 H (25-40) % Marin % (Auto) 9.4 (3-14) % Eos % (Auto) 2.9 (2-4) % Baso % (Auto) 1.2 (0-2) % Neut # (Auto) 2900 (4902-7701) /uL Lymph # (Auto) 3500 (4447-4443) /uL Marin # (Auto) 700 (0-900) /uL Eos # (Auto) 200 (0-450) /uL Baso # (Auto) 100 (0-100) /uL Sodium 139 (137-145) mmol/L Potassium 3.5 (3.4-5.1) mmol/L Chloride 106 (98-107) mmol/L Carbon Dioxide 24 (22-32) mmol/L BUN 22 H (9-20) mg/dL Creatinine 1.23 (0.66-1.25) mg/dL Estimated GFR > 60 (>60) mL/min BUN/Creatinine Ratio 17.9 (6-22) Glucose 79 (70-100) mg/dL Calcium 9.3 (8.4-10.2) mg/dL Total Bilirubin 0.7 (0.2-1.3) mg/dL AST 37 (17-59) IU/L ALT 54 H (<50) IU/L Alkaline Phosphatase 83 (38-126) U/L Total Protein 8.0 (6.3-8.2) g/dL Albumin 4.6 (3.5-5.0) g/dL Globulin 3.4 (1.7-4.1) g/dL Albumin/Globulin Ratio 1.4 (1.0-2.8) Procalcitonin 0.060 (<0.5) ng/mL Discharge Plan Departure Patient Disposition: Home Clinical Impression: Post op infection Qualifiers: Encounter type: subsequent encounter Postoperative infection type: unspecified type Qualified Code(s): T81.40XD - Infection following a procedure, unspecified, subsequent encounter Activity Restrictions/Additional Instructions: Thank you for coming in Your blood work today is reassuring. This does not look like it is a systemic infection, does not look like extends into the joint or into the bone but I am concerned that some of the hardware, 1 of the screws is infected. I spoke with Dr. Nieves about your blood work as well as the MRI that was done on the . He is going to review the MRI and talk to Dr. Rader and together they are going to, but a plan. In the meantime continue on antibiotics to keep the infection suppressed is the appropriate course of action. Oral antibiotics should be appropriate. To your current Septra/Bactrim I am going to suggest that we add clindamycin. In the [facility] in [place] to start later today. Please expect to hear from Dr. Nieves regarding follow up plans. If you find that you are getting worse or develop any new symptoms, please feel free to return to the emergency department for further evaluation. Prescriptions: New clindamycin HCl 300 mg capsule 300 mg PO BID 7 Days Qty: 14 0RF No Action sertraline 50 mg tablet 50 mg PO DAILY acetaminophen 325 mg Tablet 650 mg PO Q6H Qty: 20 0RF docusate sodium 100 mg Capsule 100 mg PO BID Qty: 30 0RF ibuprofen 600 mg Tablet 600 mg PO Q6H Qty: 30 0RF sulfamethoxazole-trimethoprim [Bactrim DS] 800-160 mg tablet 1 tab PO BID Qty: 28 0RF hydrocodone-acetaminophen 5-325 mg tablet 1 tab PO Q6H PRN (Reason: pain) Qty: 30 0RF Referrals: [facility] [Primary Care Provider] - Stand Alone Forms: Patient Portal/API/Survey
[2024-06-21 02:29] LABS: Add Manual Diff / Slide Review NO; Basophils Absolute Auto 100 /uL (0-100); Basophils Percent Auto 1.2 % (0-2); Eosinophils Absolute Auto 200 /uL (0-450); Eosinophils Percent Auto 2.9 % (2-4); Hematocrit 43.9 % (41-53); Hemoglobin 15.4 g/dL (13.5-17.5); Lymphocytes Absolute Auto 3500 /uL (1100-4500); Lymphocytes Percent Auto 47.8 % (25-40); Mean Corpuscular Hemoglobin 29.2 PG (26-34); Mean Corpuscular Volume 83.3 fL (80-100); Monocytes Absolute Auto 700 /uL (0-900); Monocytes Percent Auto 9.4 % (3-14); Neutrophils Absolute Auto 2900 /uL (1500-7000); Neutrophils Percent Auto 38.7 % (50-75); Platelet Count 207 X10^3/uL (150-400); Red Blood Cell Count 5.27 X10^6/uL (4.5-5.9); Red Cell Distribution Width 14.7 % (11.6-14.8); White Blood Cell Count 7.4 X10^3/uL (4.5-11.0)
[2024-06-21 02:41] LABS: Alanine Aminotransferase 54 IU/L (<50); Albumin 4.6 g/dL (3.5-5.0); Albumin Globulin Ratio 1.4 (1.0-2.8); Alkaline Phosphatase 83 U/L (38-126); Aspartate Aminotransferase 37 IU/L (17-59); BUN Creatinine Ratio 17.9 (6-22); Bilirubin Total 0.7 mg/dL (0.2-1.3); Blood Urea Nitrogen 22 mg/dL (9-20); Calcium 9.3 mg/dL (8.4-10.2); Carbon Dioxide 24 mmol/L (22-32); Chloride 106 mmol/L (98-107); Estimated Glomerular Filt Rate > 60 mL/min (>60); Globulin 3.4 g/dL (1.7-4.1); Glucose 79 mg/dL (70-100); HEMOLYSIS < 15 (0-50); Potassium 3.5 mmol/L (3.4-5.1); Sodium 139 mmol/L (137-145)
[2024-06-21] MEDS: IBUPROFEN 400 MG TABLET PO (02:46)
[2024-06-21] MEDS: cefTRIAXone 2,000 MG in SODIUM CHLORIDE 0.9% 100 ML 200 MG IV (02:46)
[2024-06-21] MEDS: ACETAMINOPHEN 325 MG TABLET PO (02:47)
[2024-06-21 04:43] VITALS: BP 124/85; PULSE 83; RESP 15; TEMP 36.3; O2SAT 95
== END 2024-06-21 04:44 | disposition home or self-care (01) ==
PROVIDERS: Emergency Provider Emergency Medicine
DX: T81.41XA Infection following a procedure, superficial incisional surgical site, initial encounter (principal); B95.61 Methicillin susceptible Staphylococcus aureus infection as the cause of diseases classified elsewhere; L02.416 Cutaneous abscess of left lower limb; Z98.890 Other specified postprocedural states; M96.89 Other intraoperative and postprocedural complications and disorders of the musculoskeletal system
CPT/HCPCS: 36415; 73721; 80053; 84145; 85025; 87070; 87075; 87077; 87147; 87186; 87205; 96365; 99284; J0696

== ENCOUNTER 2024-07-06 22:29 | Emergency (ER) | payer OTHER, SELFPAY ==
[2024-03-31 12:02] VITALS: BMI 33.1
[2024-07-06 22:33] VITALS: BP 129/93; PULSE 72; RESP 17; TEMP 36.1; O2SAT 95; BMI 33.1
[2024-07-06 22:41] VITALS: BP 135/84; PULSE 87; RESP 16; TEMP 36.1; O2SAT 97; BMI 33.1
[2024-07-06 23:01] VITALS: PULSE 77; O2SAT 98
[2024-07-06 23:02] VITALS: BP 125/87; PULSE 77; RESP 16; O2SAT 98
--- NOTE | 2024-07-06 23:07 | ED.SKABFB ---
HPI - Skin/Abscess/Foreign Bdy General Chief complaint: Skin/Abscess/Foreign Body Stated complaint: recurring staff infection lft knee Time Seen by Provider: 07/06/24 22:47 Source: patient Mode of arrival: Ambulatory History of Present Illness HPI narrative: 28-year-old gentleman with a complicated history of left knee surgery specifically left medial patellofemoral ligament reconstruction back in January 2024 complicated by skin infection in February washed out by Dr. Young March 31, 2024 seen on June 12 for developing knee infection specifically the medial aspect of the left knee at that time that has small amount of drainage for which cultures were obtained and patient was started on doxycycline. At that time he was given a single dose of vancomycin and treated with Bactrim and the cultures grew out MRSA that were pansensitive. Patient then was again seen on June 23, 2024 that the wound looks like it is deeper with some purulence and cultures were sent again. But had no fever or chills then and as such was sent home on clindamycin. And per the ER note Dr. Dante Lomas was going to review the MRI that was done on June [address] Rc HART and they are going to come up with a plan. Patient reports today that he continues to have over the last 12:48 p.m. increasing left knee pain but no active drainage purulence or fever but he feels the infection is coming back again. Other than what is stated 14 point review of system is negative Related Data Home Medications Medication Instructions Recorded Confirmed sertraline 50 mg tablet 50 mg PO DAILY 03/31/24 03/31/24 Previous Rx's Medication Instructions Recorded acetaminophen 325 mg tablet 650 mg (2 x 325 mg) PO Q6H #20 tabs 04/01/24 docusate sodium 100 mg capsule 100 mg PO BID #30 caps 04/01/24 hydrocodone 5 mg-acetaminophen 325 1 tab PO Q6H PRN pain #30 tabs 04/01/24 mg tablet ibuprofen 600 mg tablet 600 mg PO Q6H #30 tabs 04/01/24 sulfamethoxazole 800 1 tab PO BID #28 tabs 04/01/24 mg-trimethoprim 160 mg tablet (Bactrim DS) doxycycline hyclate 100 mg capsule 100 mg PO BID #14 caps 07/07/24 hydrocodone 5 mg-acetaminophen 325 1 tab PO Q6H PRN pain #20 tabs 07/07/24 mg tablet Allergies Allergy/AdvReac Type Severity Reaction Status Date / Time No Known Drug Allergies Allergy Verified 07/06/24 22:41 Review of Systems Review of Systems ROS Unobtainable: All systems reviewed & are unremarkable except as noted in HPI and below Patient History Surgical History (Updated 06/21/24 @ 03:42 by Anastacia Best MD) S/P medial patellofemoral ligament reconstruction Social History household members: spouse alcohol intake: current Exam Narrative Exam Narrative: GENERAL: [28] year old patient appears stated age. Well-developed patient, in mild distress. HEAD: Atraumatic. Normocephalic. EYES: Pupils equal round and reactive. Extraocular motions intact. No scleral icterus. No injection or drainage. EXTREMITIES: L knee superficial bulla TTP warm but no active drainage or bleeding, no fluctuance or streaking seen. ROM to 90 degrees painful but able to flex to 90 degrees. Motor/sensory intact +2DP +2PT cap refil<2secs BACK: Nontender without deformity or crepitance. No flank tenderness. NEURO: AOx3. SKIN: No rash or erythema of visible areas Initial Vital Signs Initial Vital Signs: Vital Signs Temperature 97 F L 07/06/24 22:33 Pulse Rate 72 07/06/24 22:33 Respiratory Rate 17 07/06/24 22:33 Blood Pressure 129/93 H 07/06/24 22:33 Pulse Oximetry 95 07/06/24 22:33 Oxygen Delivery Method Room Air 07/06/24 22:33 Course Vital Signs Vital signs: Vital Signs - 8 hr 07/06/24 22:33 07/06/24 22:41 Temperature 97 F L 97.0 F L Pulse Rate 72 87 Respiratory Rate 17 16 Blood Pressure 129/93 H 135/84 Pulse Oximetry 95 97 Oxygen Delivery Method Room Air Room Air MDM - Skin/Abscess/Foreign Bdy Imaging Data Extremity x-ray #1: Radiologist's Impression: All lab work vital signs nurse triage note medication list previous ER / Ortho MD visits and all imaging modality all reviewed. Pt given vancomycin and rocephin here. X-ray of the knee showed no acute bone abnormality or significant effusion. Also showed postsurgical changes at the medial femoral condyle with displaced surgical anchor which are better demonstrated on prior MRI from 06/20/2024. Case discussed with Dr. Nieves orthopedic MD on-call was advised to start antibiotics again doxycycline and to have patient follow up with [place] orthopedic surgeon that has since relocated from [facility] Dr. Raedr. Dr. Dr. Young stated that patient missed his appointment last week with him but that he has been in communication with Dr. Rc Levine who already has a plan to have surgery with him and to have him call his office for an appointment in [place]. Differential diagnosis includes septic joint, postop infection, cellulitis, MRSA, failed outpatient surgery. D/c home on norco and doxy rx. Discharge Plan Departure Patient Disposition: Home Clinical Impression: Post op infection Qualifiers: Encounter type: subsequent encounter Postoperative infection type: deep incisional surgical site Qualified Code(s): T81.42XD - Infection following a procedure, deep incisional surgical site, subsequent encounter Instructions: DI for Surgical Site Infection Activity Restrictions/Additional Instructions: Return with new or worsening symptoms. Take your medicines directed. Follow up with Dr. Murcia Ortho MD in [place] call his office for appointment. Prescriptions: New doxycycline hyclate 100 mg capsule 100 mg PO BID Qty: 14 0RF hydrocodone-acetaminophen 5-325 mg tablet 1 tab PO Q6H PRN (Reason: pain) Qty: 20 0RF No Action sertraline 50 mg tablet 50 mg PO DAILY acetaminophen 325 mg Tablet 650 mg PO Q6H Qty: 20 0RF docusate sodium 100 mg Capsule 100 mg PO BID Qty: 30 0RF ibuprofen 600 mg Tablet 600 mg PO Q6H Qty: 30 0RF sulfamethoxazole-trimethoprim [Bactrim DS] 800-160 mg tablet 1 tab PO BID Qty: 28 0RF hydrocodone-acetaminophen 5-325 mg tablet 1 tab PO Q6H PRN (Reason: pain) Qty: 30 0RF Referrals: [facility] [Primary Care Provider] - Stand Alone Forms: Patient Portal/API/Survey
[2024-07-06 23:30] VITALS: PULSE 80; RESP 19; O2SAT 97
[2024-07-06 23:31] VITALS: BP 134/95; PULSE 82; RESP 20; O2SAT 97
[2024-07-06 23:47] LABS: Lactate (Lactic Acid) 1.7 mmol/L (0.7-2.1)
[2024-07-06] MEDS: cefTRIAXone 1,000 MG in SODIUM CHLORIDE 0.9% 100 ML 200 MG IV (23:51)
[2024-07-06] MEDS: KETOROLAC 30 MG/ML VIAL 15 MG IV (23:51)
[2024-07-06] MEDS: SODIUM CHLORIDE 0.9% 500 ML 1000 ML IV (23:52)
[2024-07-07] VITALS (7 sets, daily range): BP systolic 118–135; BP diastolic 58–85; PULSE 73–83; RESP 16–20; O2SAT 95–98
--- NOTE | 2024-07-07 00:09 | DI.RAD.S_ITS ---
PROCEDURE: XR KNEE LT 4V INDICATIONS: pain TECHNIQUE: 3 views of the knee were acquired. COMPARISON: [facility], MR, MR KNEE LT WO CON, 06/20/2024, 20:20. [facility], CR, XR KNEE LT 3V, 06/12/2024, 13:12. FINDINGS: Bones: No acute fractures or dislocations. No suspicious bony lesions. Postsurgical changes at the medial femoral epicondyle again seen better demonstrated on the prior MRI. Displaced surgical anchor is also better demonstrated on the prior MRI. Soft tissues: No joint effusion. No suspicious soft tissue calcifications. IMPRESSION: 1. No acute bony abnormality or significant effusion. 2. Postsurgical changes at the medial femoral condyle with displaced surgical anchor, which are better demonstrated on the prior MRI from 06/20/2024. Approved by: Shashank Romeo M.D. on 07/07/2024 at 0:55
[2024-07-07 00:14] LABS: Procalcitonin 0.083 ng/mL (<0.5)
[2024-07-07] MEDS: VANCOMYCIN 1,000 MG in SODIUM CHLORIDE 0.9% 250 ML 250 MG IV (00:55)
[2024-07-07] MEDS: HYDROMORPHONE 0.5 MG INJ IV (01:55)
== END 2024-07-07 02:21 | disposition home or self-care (01) ==
PROVIDERS: Emergency Provider Family Medicine
DX: T81.42XD Infection following a procedure, deep incisional surgical site, subsequent encounter (principal)
CPT/HCPCS: 36415; 73564; 83605; 84145; 87070; 87075; 87205; 96365; 96367; 96375; 99284; J0696; J1171; J1885

== ENCOUNTER → 2024-07-15 08:34 | Outpatient (CLI) | payer OTHER, SELFPAY ==
[2024-03-31 12:02] VITALS: BMI 33.1
== END ==
LOC: WC 08:35
PROVIDERS: Visit Provider Surgery
DX: M86.162 Other acute osteomyelitis, left tibia and fibula (principal); Z48.89 Encounter for other specified surgical aftercare; Z87.891 Personal history of nicotine dependence; M25.562 Pain in left knee; M54.2 Cervicalgia; M25.532 Pain in left wrist; F41.9 Anxiety disorder, unspecified
CPT/HCPCS: 99203; 99213

== ENCOUNTER → 2024-07-29 11:35 | Outpatient (CLI) | payer OTHER, SELFPAY ==
[2024-03-31 12:02] VITALS: BMI 33.1
== END ==
LOC: WC 11:36
PROVIDERS: Visit Provider Surgery
DX: Z09 Encounter for follow-up examination after completed treatment for conditions other than malignant neoplasm (principal); S81.002D Unspecified open wound, left knee, subsequent encounter; M86.162 Other acute osteomyelitis, left tibia and fibula
CPT/HCPCS: 99212; 99213

== ENCOUNTER → 2024-09-16 13:32 | Outpatient (CLI) | payer OTHER, SELFPAY ==
[2024-03-31 12:02] VITALS: BMI 33.1
--- NOTE | 2024-09-16 13:33 | DI.MRI.S_ITS ---
PROCEDURE: MR KNEE RT WO CON INDICATIONS: Rt knee pain TECHNIQUE: Noncontrast sagittal PD fast spin echo and T2 fast spin echo with fat saturation, sagittal 3-D FLASH with fat saturation; coronal T1 spin echo and PD fast spin echo with fat saturation, and axial PD fast spin echo with fat saturation through the knee. COMPARISON: [facility], MR, MR KNEE LT WO CON, 06/20/2024, 20:20. FINDINGS: Image quality: Excellent. Some images are limited by patient motion artifacts. Menisci: The medial and lateral menisci demonstrate normal morphology and internal signal. The meniscal root ligaments appear intact. Cruciate ligaments: The anterior and posterior cruciate ligaments appear intact. Medial structures: The medial collateral ligament appears intact. The semimembranosus tendon insertions, and meniscocapsular junction appear intact. Visualized portions of the pes anserinus tendons appear normal. No abnormal bursal fluid. Lateral structures: The lateral collateral ligament, long and short heads of the biceps femoris tendon appear intact. The popliteus tendon appears normal. Iliotibial band appears normal. Anterior structures: Mild patella Alejandra configuration. On the axial images there is flattening of the lateral patella facet and diminutive size of the medial patellar facet with mild flattening of the femoral trochlea may be an indication patellar tracking instability. Mild increased T2 weighted signal edema at the lateral patellar retinaculum attachment and minimal approximately 5 mm lateral subluxation of the patella in relation to the distal femur. The quadriceps and patellar tendons appear intact. No edema in the infrapatellar fat pad. Bones and cartilage: Mild increased T2 weighted signal with some irregularity in the medial and lateral aspects of the patellar cartilage, chondromalacia patella. The femoral cartilage in the patellofemoral compartment appears normal. Mild diffuse thinning with mild irregularity in the medial compartment greater than lateral compartment cartilage without focal cartilage defect. No bone marrow contusions or fractures. Joint space: Mild knee joint effusion. Mild popliteal cyst measures up to approximately 5 cm cc by 2 cm transverse by 0.5 cm AP maximal dimensions. IMPRESSION: Possible patellar tracking instability with flattened patellar facets as discussed above mild lateral subluxation of the patella and mild chondromalacia.. Knee joint effusion, small popliteal cyst. Other findings as above. Dictated by: Pradeep Goins M.D. on 09/16/2024 at 16:32 Approved by: Pradeep Goins M.D. on 09/16/2024 at 16:50
== END ==
DX: M25.361 Other instability, right knee (principal); M22.41 Chondromalacia patellae, right knee; M25.461 Effusion, right knee; M71.21 Synovial cyst of popliteal space [Baker], right knee
CPT/HCPCS: 73721